=== PATIENT | male | born 1955 | race Caucasian/White ===

== ENCOUNTER 2016-07-23 11:04 | Observation (INO) ==
[2016-07-23] MEDS ORDERED: Ringers Solution, Lactated 1,000 ML IVC SCH ×3 (12:00→20:18)
[2016-07-23] MEDS ORDERED: Scopolamine Patch 1.5 MG PATCH.TD72 TD ONE (12:08)
[2016-07-23] MEDS ORDERED: *HR* Promethazine 25 MG/ML VIAL IVP PRN ×2 (12:08→20:18)
[2016-07-23] MEDS ORDERED: *HR* Labetalol 100 MG/20 ML MDV IVP PRN ×2 (12:08→20:18)
[2016-07-23] MEDS ORDERED: Famotidine 20 MG/2 ML VIAL IVP ONE (12:08)
[2016-07-23] MEDS ORDERED: *HR* HYDROmorphone (PF) 1 MG/ML SYRINGE IVP PRN ×2 (12:08→20:18)
[2016-07-23] MEDS ORDERED: Gabapentin 300 MG CAPSULE PO STA (12:11)
[2016-07-23] MEDS ORDERED: Acetaminophen IV 1,000 MG/100 ML INFUS..BTL IVPB ONE ×2 (12:11→20:18)
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
[2016-07-23] MEDS ORDERED: *HR* LORazepam 0.5 MG TABLET PO STA (12:16)
[2016-07-23] MEDS ORDERED: Metoclopramide 10 MG/2 ML VIAL IVP ONE (12:18)
[2016-07-23] MEDS ORDERED: *HR* FentaNYL (PF) 100 MCG/2 ML VIAL ONE (12:44)
[2016-07-23] MEDS ORDERED: Lidocaine -MPF 2% 2 ML VIAL ONE ×2 (12:44→13:44)
[2016-07-23] MEDS ORDERED: *HR* Propofol 200 MG/20 ML VIAL IVP ONE (12:44)
[2016-07-23] MEDS ORDERED: *HR* Rocuronium Bromide 50 MG/5 ML VIAL ONE (12:44)
[2016-07-23] MEDS ORDERED: *HR* Midazolam HCl 2 MG/2 ML VIAL ONE (12:46)
[2016-07-23] MEDS ORDERED: CeFAZolin Pre 2,000 MG/100 ML 2,000 MG/100 ML BAG IVPB ONE (13:16)
--- NOTE | 2016-07-23 13:32 | History & Physical Report ---
Date of Encounter: 07/23/16 Time of Encounter: 13:32 24 Hour HP Update - Instructions Instructions: If the History and Physical is less than 30 days old and was completed prior to A.M. admission and or procedure and has NOT been updated on calendar day of procedure please complete this update prior to performing procedure. - Update Patient reports changes in Medical Condition: No Changes in assessment/condition: No Changes in Medication: No Preop tests/diagnostics Reviewed: Yes Surgery Remains Indicated: Yes Consent for Planned Operative Procedure(s) Verified: Yes - Pre-Operative Checklist Preoperative Checklist Indicated: Yes Prophylactic Antibiotic Ordered: Yes Home Medications Include Beta Charmaine: No
--- NOTE | 2016-07-23 13:46 | Operative Note ---
Date of procedure: 07/23/16 Pre-op diagnosis: Left Inguinal Hernia Post-op diagnosis: same Procedure: Robotic Left Inguinal Hernia with mesh Anesthesia: MORIAH Surgeon: Errol Crawford Estimated blood loss (cc): 5 Condition: stable Disposition: same day Procedure in Detail: After informed consent, patient was taken the operating room placed in the supine position. After adequate sedation anesthesia the abdomen was prepped and draped. An incision was made in the subxiphoid region with an eleven blade knife. A 12 mm cannula was then placed into the abdomen under direct visualization. Once a pneumoperitoneum was established two individual 8 mm cannulas were placed in the right and left upper quadrant. The patient was placed in a headdown position the abdomen was evaluated and found to have a left inguinal hernia. The robot was docked over the patient's left hip. The robotic arms were connected to the 8 mm cannulas. A Cadiere clamp and large suture cut needle compressed air pile driver operator was placed into the abdomen. A 4 x 6" mesh had been cut and fashioned and placed within the abdomen. A 2 x 6 mesh was also placed. The peritoneum was then taken down scissors. The pubic tubercle was visualized, as was the iliac artery and vein and the inferior epigastric vessels. The hernia sac was seen attached to the spermatic cord structures. This was dissected free from the cord structures. Once completed the 4 x 6 piece of mesh was then placed in the preperitoneal space. It was sutured to the fascia of the pubic tubercle and an 0 Vicryl suture was then used to run the mesh in place medially and superiorly. The inferior limb of the mesh was brought inferior to the spermatic cord structures area it too was sutured superiorly and laterally. The 2 x 6 piece of mesh was then placed over the internal ring. It was sutured again to the pubic tubercle medially and brought out through the peritoneum. A second suture was brought out laterally on the peritoneum they were run towards the midline, then tied and secured. 2 individual needles were then retrieved from the abdomen. The pneumoperitoneum was evacuated from the abdomen. The 12 mm cannula site was then closed with an 0 Vicryl suture. The skin was closed with 4-0 Vicryl suture followed by Dermabond. All instrument counts and needle counts were correct in the case. The patient was taken to the recovery room in stable condition.
[2016-07-23] MEDS ORDERED: *HR* OxyCODONE/APAP 5/325 TABLET PO PRN ×2 (13:49→20:18)
--- NOTE | 2016-07-23 13:49 | Discharge Summary ---
Outpatient Proc Discharge Plan - Plan Additional Instructions: Pt may have a regular diet. pt may shower today. Pt should avoid lifting for 4 weeks. Pt should avoid driving for the next 7-10 Prescriptions: OxyCODONE/APAP 5/325 [Percocet 5/325 MG] 1 each PO Q6HR PRN #30 tablet PRN Reason: Pain Home Medications: Aspirin 325 mg PO DAILY 07/23/16 [History] Atorvastatin [Lipitor] 40 mg PO HS 07/23/16 [History] Cholecalciferol (D-3) [Vitamin D] 1,000 unit PO DAILY 07/23/16 [History] Cinnamon Bark [Cinnamon] 500 mg PO DAILY 07/23/16 [History] Glucosamn/Condroitn/C/Mn/[place] [[facility] Glucosamine Chondroitin Tb] 1 tab PO DAILY 07/23/16 [History] Krill/[place]and-3/Dha/Epa/Lipids [Krill Oil 300 mg Softgel] 300 mg PO DAILY [History] Lisinopril/Hydrochlorothiazide [Zestoretic 20-25 mg Tablet] 1 tab PO DAILY 07/23 [History] M[place]and-3/Dha/Epa/Fish Oil [Fish Oil 1,000 mg Softgel] 1,000 mg PO DAILY 07/23/16 [History] OxyCODONE/APAP 5/325 [Percocet 5/325 MG] 1 each PO Q6HR PRN #30 tablet 07/23/16 [Rx] Turmeric Root Extract [Turmeric] 500 mg PO DAILY 07/23/16 [History]
[2016-07-23] MEDS ORDERED: Dexamethasone 4 MG/ML VIAL ONE (14:00)
[2016-07-23] MEDS ORDERED: Ondansetron 4 MG/2 ML VIAL ONE (14:00)
[2016-07-23] MEDS ORDERED: Water for inj. (sterile) 10 ML IV ONE (14:35)
[2016-07-23] MEDS ORDERED: *HR* Morphine 10 MG/ML VIAL ONE (14:35)
--- NOTE | 2016-07-23 14:43 | Operative Note ---
Date of procedure: 07/23/16 Pre-op diagnosis: Ventral hernia Post-op diagnosis: same Procedure: Robotic ventral hernia repair with 9 cm mesh. Anesthesia: MORIAH Surgeon: Errol Crawford Estimated blood loss (cc): 5 Condition: stable Disposition: same day Procedure in Detail: After informed consent, the patient was taken the operating room placed in supine position. After adequate sedation and anesthesia the patient's abdomen was prepped and draped. A proper timeout was performed. A 12 mm incision was made on the patient's left abdomen at the level of the umbilicus in the posterior axillary line. Two 8 mm cannulas were placed in the left upper quadrant and left lower quadrant. Once in place a DeBakey grasper was used to reduce the incarcerated tissue from the midline hernia. A 9cm symbotex mesh was loaded into the abdomen. The robot was docked over the patient's right hip. The robotic arms were connected to the port sites. A robotic grasper and needle milk delivery driver was inserted. The mesh was then situated over the defect and it was sewn to the abdominal wall with an 0 vicryl suture in running fashion. Once completed, the needles were retrieved. The abdomen was deflated and the port sites were removed the 12 mm cannula site was closed with an 0 Vicryl suture in [id number] fashion. The skin was closed with 4-0 Vicryl suture. Dermabond was placed. One half percent Marcaine 30 mL's were placed in the incision sites. The patient tolerated the procedure well. All instrument counts and needle counts were correct at the end of the case.
[2016-07-23] MEDS ORDERED: Ondansetron 4 MG/2 ML VIAL IVP ONE ×2 (16:51→17:42)
--- NOTE | 2016-07-23 19:30 | Anesthesia Evaluation Post Op ---
Date of Encounter: 07/23/16 Time of Encounter: 19:29 - Vital Signs Vital Signs: Vital Signs/O2 Sat/Glucose, Most Current Pulse Resp BP Pulse Ox 07/23/16 18:24 82 16 110/67 98 07/23/16 17:25 88 16 108/65 95 07/23/16 16:25 55 16 88/63 99 07/23/16 15:55 76 16 92/61 96 - Lungs Lungs: Clear Ascult./Percussion - Airway Airway: Non-obstructed - Cardiovascular Regular Rate - Mental Status Mental Status: Alert & Oriented, Answers Appropriately - Pain Pain Scale: 3 - Nausea Vomiting Nausea Vomiting: Present (but improved) - Hydration Hydration: Tolerates oral liquids - Discharge PostOp Status: Discharge Patient to home
[2016-07-23] MEDS ORDERED: Ondansetron 4 MG/2 ML VIAL IVP PRN (20:18)
[2016-07-24 08:45] VITALS: BP 110/67
--- NOTE | 2016-07-24 10:07 | Discharge Summary ---
Date of Encounter: 07/24/16 Time of Encounter: 10:04 - Discharge Diagnosis (1) Ventral hernia Priority: Primary Status: Acute Qualifiers: Obstruction and gangrene presence: without obstruction or gangrene Qualified Code(s): K43.9 - Ventral hernia without obstruction or gangrene - Discharge Medications Prescriptions: Docusate [Colace] 100 mg PO BID #30 capsule Home Medications: Aspirin 325 mg PO DAILY 07/23/16 [History] Atorvastatin [Lipitor] 40 mg PO HS 07/23/16 [History] Cholecalciferol (D-3) [Vitamin D] 1,000 unit PO DAILY 07/23/16 [History] Cinnamon Bark [Cinnamon] 500 mg PO DAILY 07/23/16 [History] Glucosamn/Condroitn/C/Mn/[place]rient [[facility] Glucosamine Chondroitin Tb] 1 tab PO DAILY 07/23/16 [History] Krill/[place]-3/Dha/Epa/Lipids [Krill Oil 300 mg Softgel] 300 mg PO DAILY [History] Lisinopril/Hydrochlorothiazide [Zestoretic 20-25 mg Tablet] 1 tab PO DAILY 07/23 [History] [place]-3/Dha/Epa/Fish Oil [Fish Oil 1,000 mg Softgel] 1,000 mg PO DAILY 07/23/16 [History] OxyCODONE/APAP 5/325 [Percocet 5/325 MG] 1 each PO Q6HR PRN #30 tablet 07/23/16 [Rx] Turmeric Root Extract [Turmeric] 500 mg PO DAILY 07/23/16 [History] Docusate [Colace] 100 mg PO BID #30 capsule 07/24/16 [Rx] Allergies/Adverse Reactions: Allergies No Known Allergies Allergy (Verified 03/02/16 16:38) General Surgery Exam Initial Vital Signs Temp Pulse Resp BP Pulse Ox 97.8 F 65 18 121/81 98 07/23/16 11:32 07/23/16 11:32 07/23/16 11:32 07/23/16 11:32 07/23/16 11:32 - General physical appearance well developed, well nourished, no distress - Eyes normal ocular movement - ENT normal mucosa, atraumatic, normocephalic - Neck trachea midline - Respiratory normal respiratory effort, clear to auscultation - Cardiovascular Cardiovascular exam: Present: RRR - Abdomen Abdomen general surgery: Present: soft, tender (expected post-op). Absent: bowel sounds present - Incision Incision: Present: clean and dry, intact - Integumentary Integumentary general surgery: Present: warm and dry - Neurologic Present: CN 2-12 grossly intact - Psychiatric Psychiatric general surgery: Present: A&Ox3, speech is normal, memory intact Date of admission: 07/23/16 20:20 Primary care physician: PCP NO Discharging clinician: Jane Mohan Anticipated date of discharge: 07/24/16 - Patient Status Disposition: Home, Self-Care Condition: Good Functional capacity at discharge: independent ambulation Overall status at discharge: patient is back to baseline - Discharge Instructions Instructions: Umbilical Hernia (DC) Follow Up With: Charlene Watkins HAND ICER [Advanced Practice Nurse] - 07/31/16 8:30 am NO,PCP [Primary Care Provider] - Additional Instructions: Pt may have a regular diet. pt may shower today. Pt should avoid lifting for 4 weeks. Pt should avoid driving for the next 7-10 - Diet and Activity Diet: advance to your usual diet - Hospital Course Hospital course: Mr. Vanegas is a 60 year old male who had robotic ventral hernia repair with mesh yesterday. He stayed overnight in the hospital due to his surgery being completed later in the day and lingering anesthesia effects. He is being discharged home today and has follow-up scheduled in the office. - Time Spent with Patient Total time spent providing and/or coordinating discharge services:
== END 2016-07-24 12:01 | disposition home or self-care (01) ==
LOC: SAMDAY 11:04 → 3ANU 11:04
PROVIDERS: ADMIT Surgery; ATTEND Surgery